=== PATIENT | male | born 1960 | race Caucasian/White ===

== ENCOUNTER 2020-08-06 07:43 | Day surgery (SDC) | payer MEDICARE, OTHER ==
[~2020-08-06] VITALS: Ht 162.6 cm; Wt 57.2 kg
[~2020-08-06 07:43] MED LIST: ATIVAN0.5 MG PO; CELEXA10 MG PO; GLUCOPHAGE1000 MG PO; LISINOPRIL2.5 MG PO; PRAVACHOL40 MG PO
[2020-08-06 08:17] LABS: CALC OSMOLALITY 284 mosm/kg (275-300); CALCIUM 9.4 mg/dL (8.5-10.1); CARBON DIOXIDE 28.6 mmol/L (21.0-32.0); CHLORIDE - SERUM 104 mmol/L (98-107); CREATININE - SERUM 0.9 mg/dL (0.6-1.3); GLUCOSE 152 mg/dL (74-106); POTASSIUM - SERUM 4.2 mmol/L (3.5-5.1); SODIUM 140 mmol/L (136-145); UREA NITROGEN 21 mg/dL (7-18); eGFR NON AFRICAN AMERICAN > 90 mL/min (90-120)
[2020-08-06 08:29] LABS: BASOPHILS 0.3 % (0-2); EOSINOPHILS 1.4 % (0-7); HEMATOCRIT 45.6 % (42.0-54.0); HEMOGLOBIN 14.9 g/dL (13.5-17.5); IMMATURE GRANULOCYTES 0.3 % (0-5); LYMPHOCYTES 13.6 % (15-50); MCH 28.9 pg (26.0-34.0); MCHC 32.7 g/dL (31.0-37.0); MCV 88.5 fL (80.0-100.0); MEAN PLATELET VOLUME 9.7 fL (7.4-10.4); MONOCYTES 5.7 % (2-11); NEUTROPHILS 78.7 % (40-80); PLATELET COUNT 306 10x3/uL (130-400); RBC 5.15 10x6/uL (4.20-6.10); RDW 13.4 % (11.5-14.5); WBC 11.5 10x3/uL (4.8-10.8)
[2020-08-06 08:54] VITALS: BP 132/69; Ht 162.6 cm; Wt 57.2 kg
--- NOTE | 2020-08-06 16:10 | HP ---
PATIENT: EVELIN CHAVEZ MEDICAL RECORD: [id number] ACCOUNT: [id number] LOCATION:[facility] : 56 ADMISSION DATE: 08/06/20 PCP: HOMERO SHAIKH DO HISTORY AND PHYSICAL EXAMINATION CHIEF COMPLAINT: Hernia. HISTORY OF PRESENT ILLNESS: The patient has a left-sided inguinal hernia. It is becoming increasingly symptomatic. The patient has been having some nausea. He has difficulty urinating as well. He holds his left groin and reduces the hernia during urination. There is tenderness with ambulation as well as heavy lifting. He had to go home from work on Tuesday due to pain. The risks, possible complications, and alternatives of the procedure were explained to the patient. He elects to proceed. The discussion specifically included, but was not limited to, bleeding requiring emergency reoperation, infection, recurrent herniation, chronic pain. PAST MEDICAL AND SURGICAL HISTORY: Diabetes as well as pancreatic surgery when he was an . 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 He is . He has never smoked. ALLERGIES: CODEINE. MEDICATIONS: The last list of home medicines I have includes pravastatin, metformin, lorazepam, lisinopril, hydroxyzine, citalopram. PAST MEDICAL AND SURGICAL HISTORY: Also include hypercholesterolemia, anxiety. FAMILY HISTORY: Positive for mother who had a malignant neoplasm as well as arthritis. PHYSICAL EXAMINATION: GENERAL: The patient does not appear acutely ill. He does not appear chronically ill. VITAL SIGNS: Reviewed. EARS: External ears appear normal. EYES: Extraocular movements are intact. NECK: Trachea is midline. CHEST: No intercostal retractions. PULMONARY: Nonlabored. No stridor. ABDOMEN: Nontender except for the left groin where there is a reducible inguinal hernia. I examined the patient's genitals, both testicles are descended. There is no inguinal hernia on the right. There is a reducible inguinal hernia on the left, which is tender. IMPRESSION: Symptomatic left inguinal hernia. PLAN: Plan will be open left inguinal hernia repair with mesh. TRANSINT:[id number] Voice Confirmation ID: [id number] DOCUMENT ID: [id number] HISTORY AND PHYSICAL [id number] SCOTTEVELINANNALEE COTTON MD at 1610 CC: HOMERO SHAIKH [id number] DICTATION DATE: 08/06/20905 TABLET TECHNICIAN: 08/06/20 1154 [facility] [address] [place], [facility]901
--- NOTE | 2020-08-06 18:17 | NUR ---
181 COFFEE REQUESTED AND SERVED. PT. AMBULATORY.
--- NOTE | 2020-08-07 13:35 | OP ---
PATIENT NAME: EVELIN CHAVEZ MEDICAL RECORD: [id number] :56 LOCATION:[facility] ADMISSION DATE: SURGEON: ANNALEE DE LA CRUZ MD DATE OF OPERATION: 08/06/2020 PREOPERATIVE DIAGNOSIS: Symptomatic left inguinal hernia. POSTOPERATIVE DIAGNOSES: 1. Symptomatic reducible left indirect inguinal hernia. 2. Left cord lipoma. SURGEON: Annalee De La Cruz MD MANAGING PARTNER: Ave Milner, entry level installation technician. BLOOD LOSS: Minimal. ANESTHESIA: General. COMPLICATIONS: None. The risks, possible complications, alternatives to the procedure were explained to the patient. He elects to proceed. The discussion specifically included, but was not limited to, bleeding requiring emergency reoperation, infection, chronic pain, mesh infection. OPERATIVE COURSE: The patient was seen in the outpatient department. The site was marked. He was conveyed to the operating room. General anesthesia was induced by the anesthesia staff. The abdomen and genitals were sterilely prepped and draped. A transverse incision was accomplished in the left groin. Sharp dissection was carried down through the skin and subcutaneous tissue as well as Joana fascia. The external oblique aponeurosis was incised along the direction of its fibers. I then bluntly dissected down through the internal oblique and transversus abdominis muscles. A preperitoneal pocket was fashioned bluntly. I reduced the indirect hernia sac in its entirety. I entered the sac sharply. There was a sliding component to it. I ligated the sac highly with a pursestring 3-0 Vicryl suture. I then transected the sac distal to this. There was a cord lipoma present. It was of significant size. I clamped across the vascular pedicle to the cord lipoma and transected it distal to the clamp. I then ligated the tissue within the clamp with a 3-0 Vicryl suture. I then cut 2 ovals out of a polypropylene mesh. The 2 holes were sutured together one on top of the other with a running #1 Ethibond. The mesh was placed in the preperitoneal space. Once I was satisfied with placement of the mesh, I allowed the internal oblique and transverse abdominis muscle to come together. They were sutured together with multiple interrupted horizontal mattress 0 Ethibond sutures incorporating a portion of the mesh with these sutures. The external oblique aponeurosis was closed with a running #1 Vicryls. Joana's fascia was approximated with interrupted 3-0 Vicryl. The subdermis was approximated with 3-0 Vicryl. The skin was approximated with a running intracuticular 4-0 Vicryl. Benzoin and Steri-Strips were applied. The patient was then extubated and conveyed to post-anesthesia care unit. He OPERATIVE REPORT [id number] EVELIN CHAVEZ will be dismissed home on tramadol as well as Colace. I will see him in my office in 2-3 weeks. Discharge instructions have been given to the patient verbally by me. TRANSINT:[id number] Voice Confirmation ID: [id number] DOCUMENT ID: [id number] ANNALEE DE LA CRUZ MD at 1335 CC: [id number] DICTATION DATE: 08/06/201828 DRIER OPERATOR: 08/07/20 0417 [facility] 08/06/20 [id number] [place] [address]
== END 2020-08-06 19:00 | disposition home or self-care (01) ==
LOC: D.OPS 07:43
PROVIDERS: ATTEND Surgery
DX: K40.90 Unilateral inguinal hernia, without obstruction or gangrene, not specified as recurrent (principal); E11.9 Type 2 diabetes mellitus without complications; I10 Essential (primary) hypertension; E78.5 Hyperlipidemia, unspecified